=== PATIENT | male | born 1960 | race Caucasian/White ===

== ENCOUNTER 2017-02-10 21:16 | Inpatient (IN) | payer OTHER ==
[~2017-02-10] VITALS: Ht 170.2 cm; Wt 57.3 kg
[2017-02-10 22:02] LABS: HEMOGLOBIN 11.4 G/DL (14.0-18.0); MONOCYTES # (AUTO) 0.7 K/UL (0.1-1.30)
--- NOTE | 2017-02-10 22:08 | NUR ---
Patient in bed, no acute distress noted. Will continue to monitor patient.
[2017-02-10 22:09] LABS: BASOPHILS % (AUTO) 0.2 % (0.0-2.0); EOSINOPHILS % (AUTO) 0.5 % (0.0-7.0); HEMATOCRIT 35.1 % (40-50); LYMPHOCYTES % (AUTO) 12.3 % (20.5-51.5); MEAN CORPUSCULAR HEMOGLOBIN 28.1 UUG (27.0-31.0); MEAN CORPUSCULAR HGB CONC 33 g/dL (32.0-37.0); MEAN CORPUSCULAR VOLUME 86.3 FL (82.0-92.0); MONOCYTES % (AUTO) 8.3 % (0.0-11.0); NEUTROPHILS # (AUTO) 6.2 K/UL (1.8-8.9); NEUTROPHILS % (AUTO) 78.7 % (38.5-71.5); PLATELET COUNT (AUTO) 152 K/UL (150-450); RED BLOOD CELL COUNT(AUTO) 4.06 MIL/UL (4.7-6.1); WHITE BLOOD COUNT (AUTO) 7.9 K/UL (4.0-11.2)
[2017-02-10 22:13] LABS: ALANINE AMINOTRANSFERASE 39 U/L (16-63); ALKALINE PHOSPHATASE 197 U/L (50-136); ASPARTATE AMINOTRANSFERASE 29 U/L (15-37); BILIRUBIN,TOTAL 0.4 mg/dL (0.2-1.0); CARBON DIOXIDE 34 mmol/L (21-32); CHLORIDE 101 mmol/L (98-107); CREATININE 0.9 mg/dL (0.6-1.3); GLUCOSE 120 mg/dL (74-106); POTASSIUM 4.2 mmol/L (3.5-5.1); TOTAL PROTEIN, SERUM 6.7 g/dL (6.4-8.2); UREA NITROGEN, BLOOD 14 mg/dL (7-18)
[2017-02-10] MEDS ORDERED: ONDA8TAB12 PO (22:14)
[2017-02-10] MEDS ORDERED: LISI-603 PO (22:14)
[2017-02-10] MEDS ORDERED: TAMS0.4C34 PO (22:14)
[2017-02-10] MEDS ORDERED: HYDR2TAB8 PO (22:14)
[2017-02-10] MEDS ORDERED: MORP30TA7 PO (22:14)
[2017-02-10] MEDS ORDERED: MORP15TA PO (22:14)
[2017-02-10] MEDS ORDERED: ONDANSETRON IV *ER 4 MG/2 ML VIAL IV ONE (23:00)
[2017-02-10] MEDS ORDERED: MORPHINE SULFATE 4 MG/1 ML DISP.SYRIN IV ONE (23:00)
[2017-02-10] MEDS ORDERED: ONDANSETRON 4 MG/2 ML VIAL ONE (23:05)
[2017-02-10] MEDS ORDERED: MORPHINE SULFATE 4 MG/1 ML DISP.SYRIN ONE (23:05)
[2017-02-10] MEDS ORDERED: IV NORMAL SALINE 250 ML IV ONE (23:51)
[2017-02-10] MEDS ORDERED: IOHEXOL 300MG/ML 100 ML INFUS..BTL ONE (23:51)
[2017-02-10] MEDS ORDERED: NORMAL SALINE FLUSH 10 ML DISP.SYRIN ONE (23:51)
--- NOTE | 2017-02-11 00:50 | NUR ---
Spoke with [facility] Radiology, awaiting CT scan result.
[2017-02-11] MEDS ORDERED: CIPROFLOXACIN IV 400 MG in PREMIXED 1 EACH IV ONE (01:42)
--- NOTE | 2017-02-11 01:44 | NUR ---
Panel Call placed, call back pending.
[2017-02-11] MEDS ORDERED: METRONIDAZOLE 500 MG/NS 100 ML PIGGYBACK IV ONE (01:45)
[2017-02-11] MEDS ORDERED: METRONIDAZOLE 500 MG/NS 100ML 100 ML IV ONE (02:15)
--- NOTE | 2017-02-11 02:28 | NUR ---
Pt. admitted to Telemetry , under care of Dr. Alberto Ann. Dx: Abd pain. Belongs List completed
[2017-02-11 02:30] VITALS: BP 109/49
--- NOTE | 2017-02-11 02:35 | NUR ---
admitted new patient to room 219, patient alert,oriented,not in distress, abdominal soft ,non distended, bowel present,patient stated no bowel movement for 10 days, md was aware,patient still c/o abdominal pain.
[2017-02-11] MEDS ORDERED: LEVOFLOXACIN 500 MG/D5W 100 ML ONE (02:53)
[2017-02-11] MEDS ORDERED: MORPHINE SULFATE 4 MG/1 ML DISP.SYRIN ONE (02:58)
[2017-02-11] MEDS ORDERED: ONDANSETRON 4 MG/2 ML VIAL IV PRN ×2 (03:00)
[2017-02-11] MEDS ORDERED: ZOLPIDEM 5 MG TABLET PO PRN (03:00)
[2017-02-11] MEDS ORDERED: LEVOFLOXACIN 500 MG/D5W 500 MG in PREMIXED 1 EACH IV SCH (03:00)
[2017-02-11] MEDS ORDERED: HYDROCODONE/APAP 5-325MG TABLET PO PRN (03:00)
[2017-02-11] MEDS ORDERED: MAGNESIUM HYDROXIDE 30 ML LIQUID UDC PO PRN (03:00)
[2017-02-11] MEDS ORDERED: Z GUARD REMEDY PASTE 57 GM TUBE TOP PRN (03:00)
[2017-02-11] MEDS ORDERED: MORPHINE SULFATE 4 MG/1 ML DISP.SYRIN IV PRN (03:00)
[2017-02-11] MEDS ORDERED: ACETAMINOPHEN 325 MG TABLET PO PRN (03:00)
[2017-02-11] MEDS ORDERED: HYDROMORPHONE 1 MG/1 ML DISP.SYRIN IV PRN (03:15)
--- NOTE | 2017-02-11 03:15 | NUR ---
morphine 4mg iv given for abdominal pain 12/22 once.
[2017-02-11] MEDS: IV NS 1000 ML 1,000 ML IV PRN (03:30)
[2017-02-11] MEDS ORDERED: MORPHINE SULFATE 4 MG/1 ML DISP.SYRIN IV ONE (03:45)
[2017-02-11] MEDS: LACTULOSE 20 G/30 ML LIQUID UDC PO SCH ×4 (03:58→18:00)
[2017-02-11 04:00] VITALS: BP 101/59
[2017-02-11] MEDS ORDERED: LACTULOSE 20 G/30 ML LIQUID UDC ONE (04:08)
[2017-02-11] MEDS ORDERED: HYDROMORPHONE 2 MG/1 ML DISP.SYRIN ONE (05:16)
[2017-02-11] MEDS: LISINOPRIL 20 MG TABLET PO SCH (08:20)
[2017-02-11] MEDS: HYDROMORPHONE 2 MG/1 ML DISP.SYRIN IV PRN ×4 (09:53→20:28)
[2017-02-11 10:57] LABS: IRON, SERUM 24 ug/dL (50-175)
[2017-02-11 12:05] VITALS: BP 109/60
[2017-02-11 15:26] LABS: THYROID STIMULATING HORMONE 0.54 mIU/mL (0.358-3.740)
--- NOTE | 2017-02-11 15:34 | NUR ---
Advised pt that we need medical records from oncologist, per patient "son will bring it."
[2017-02-11 15:45] VITALS: BP 106/58
[2017-02-11 16:45] LABS: URIC ACID 2.7 mg/dL (3.5-7.2)
--- NOTE | 2017-02-11 19:05 | NUR ---
pt's son provided with Dr. Patrick cell phone number# . Son states that "call him to get the medical record". Will advise [employer] shift supervisor. Pt is laying in bed. No respiratory distress noted. Iv intact/patent. All safety needs are met.
[2017-02-11 20:57] VITALS: BP 110/51
[2017-02-12] MEDS: IV NS 1000 ML 1,000 ML IV PRN ×3 (02:32→23:56)
[2017-02-12] MEDS: HYDROMORPHONE 2 MG/1 ML DISP.SYRIN IV PRN ×8 (03:00→23:57)
[2017-02-12 04:57] VITALS: BP 98/52
[2017-02-12] MEDS: LACTULOSE 20 G/30 ML LIQUID UDC PO SCH ×5 (06:00→23:56)
--- NOTE | 2017-02-12 06:00 | NUR ---
PT SLEPT INTERMITTENTLY, IN NO ACUTE DISTRESS. PAIN MANAGEMENT ORDERED. NO DIARRHEA NOTED. IVF RUNNING, PATENT, NO INFILTRATION NOTED. CALL LIGHT WITHIN REACH, BED ALARM ON. WILL CONTINUE TO MONITOR.
[2017-02-12 06:51] LABS: BASOPHILS % (AUTO) 0.1 % (0.0-2.0); EOSINOPHILS % (AUTO) 0.8 % (0.0-7.0); HEMOGLOBIN 9.8 G/DL (14.0-18.0); LYMPHOCYTES # (AUTO) 0.9 K/UL (0.8-4.8); LYMPHOCYTES % (AUTO) 15.8 % (20.5-51.5); MEAN CORPUSCULAR HGB CONC 34 g/dL (32.0-37.0); MONOCYTES # (AUTO) 0.7 K/UL (0.1-1.30); MONOCYTES % (AUTO) 11.8 % (0.0-11.0); NEUTROPHILS # (AUTO) 4.2 K/UL (1.8-8.9); NEUTROPHILS % (AUTO) 71.5 % (38.5-71.5); PLATELET COUNT (AUTO) 146 K/UL (150-450)
[2017-02-12 06:52] LABS: CREATININE 0.7 mg/dL (0.6-1.3); MAGNESIUM 1.5 mg/dL (1.8-2.4)
[2017-02-12 06:55] LABS: RED BLOOD CELL COUNT(AUTO) 3.37 MIL/UL (4.7-6.1); WHITE BLOOD COUNT (AUTO) 6.1 K/UL (4.0-11.2)
[2017-02-12 07:46] LABS: *BILIRUBIN,URIN NEGATIVE (NEGATIVE); *BLOOD, URINE NEGATIVE (NEGATIVE); *CLARITY,URINE CLEAR (CLEAR); *COLOR,URINE DARK YELLOW (YELLOW); *KETONES,URINE NEGATIVE (NEGATIVE); *PROTEIN,URINE TRACE (NEGATIVE); *UROBILINOGEN,URINE 0.2 E.U./dl (NORMAL); LEUKOCYTE ESTERASE ,URINE NEGATIVE (NEGATIVE); NITRITE, URINE NEGATIVE (NEGATIVE); UGLUCOSE NEGATIVE (NEGATIVE)
[2017-02-12 07:55] LABS: BACTERIA,URINE NONE SEEN /HPF (NONE SEEN); MUCUS,URINE FEW /LPF (0-FEW); RBC,URINE NONE SEEN /HPF (0-3); SQUAMOUS EPITHELIAL CELL,UR FEW /HPF (NONE SEEN); WBC,URINE 0-3 /HPF (0-3)
[2017-02-12] MEDS: PSYLLIUM SEED PACKET PO SCH (09:04)
[2017-02-12] MEDS: LISINOPRIL 20 MG TABLET PO SCH (09:04)
[2017-02-12] MEDS: MAGNESIUM SULFATE/D5W 100 ML IV SCH ×2 (09:46→11:05)
[2017-02-12 11:14] VITALS: BP 104/51
--- NOTE | 2017-02-12 12:06 | NUR ---
SPOKE WITH DR COLLINS, WOULD LIKE FOR DR MEZA TO CALL HIM TO UPDATE HIM ON THE PATIENT AND WILL FAX MEDICAL RECORDS TOMORROW WHEN IN THE OFFICE. WILL PASS ALONG NUMBER TO DR MEZA IF COMES DURING SHIFT, IF NOT WILL ENDORSE TO [facility].
--- NOTE | 2017-02-12 12:15 | NUR ---
DR MEZA WAS HERE, SAW PAT, PASSED ALONG MESSAGE FROM DR BETANCUR AND GAVE HER HIS PHONE NUMBER.
[2017-02-12 15:06] VITALS: BP 108/56
[2017-02-12] MEDS ORDERED: GOLYTELY 4000 ML BOTTLE PO ONE (16:00)
[2017-02-12] MEDS ORDERED: BISACODYL 5 MG TABLET.DR PO ONE (16:00)
--- NOTE | 2017-02-12 17:42 | NUR ---
PT DRINKING GOLYTLEY AT THIS TIME, DOES NOT WANT THE LACTULOSE.
[2017-02-12 20:00] VITALS: BP 108/59
--- NOTE | 2017-02-12 20:00 | NUR ---
Pt awake, alert, oriented x 4. No acute distress noted. Verbalized pain 7-9/10. Golytely at bedside and encouraged pt to increase fluid intake. Pt states he can only drink so much. Reminded pt NPO status after 0600. Pt remains on clear liquid at this time. Continue to monitor. Call light placed within reach.
[2017-02-13] MEDS: HYDROMORPHONE 2 MG/1 ML DISP.SYRIN IV PRN ×5 (03:12→16:06)
[2017-02-13 04:00] VITALS: BP 115/65
--- NOTE | 2017-02-13 04:04 | NUR ---
Pt awake in bed and refuses to continue drinking Golytely. Verbalized "I can't sleep if i keep drinking". States he rather drink it during the day than at night. Encouraged pt to complete the Golytely as ordered including explanation of preparation process. Pt continues to state he is unable to finish large amounts and only prefers small sips at this time. Pt made aware of NPO status once completing Golytely order.
[2017-02-13] MEDS: LACTULOSE 20 G/30 ML LIQUID UDC PO SCH ×3 (06:08→16:42)
[2017-02-13 06:38] LABS: BASOPHILS % (AUTO) 0.1 % (0.0-2.0); EOSINOPHILS # (AUTO) 0.1 K/uL (0.0-0.7); HEMATOCRIT 27.9 % (40-50); HEMOGLOBIN 9.3 G/DL (14.0-18.0); LYMPHOCYTES # (AUTO) 0.9 K/UL (0.8-4.8); MEAN CORPUSCULAR HGB CONC 33 g/dL (32.0-37.0); MEAN CORPUSCULAR VOLUME 87.4 FL (82.0-92.0); MONOCYTES # (AUTO) 0.6 K/UL (0.1-1.30); MONOCYTES % (AUTO) 10.7 % (0.0-11.0); NEUTROPHILS % (AUTO) 72.2 % (38.5-71.5); PLATELET COUNT (AUTO) 141 K/UL (150-450); RED BLOOD CELL COUNT(AUTO) 3.19 MIL/UL (4.7-6.1); WHITE BLOOD COUNT (AUTO) 5.6 K/UL (4.0-11.2)
[2017-02-13 07:22] LABS: CARBON DIOXIDE 29 mmol/L (21-32); CHLORIDE 104 mmol/L (98-107); CREATININE 0.6 mg/dL (0.6-1.3); GLUCOSE 88 mg/dL (74-106); MAGNESIUM 1.8 mg/dL (1.8-2.4); POTASSIUM 3.8 mmol/L (3.5-5.1); UREA NITROGEN, BLOOD 9 mg/dL (7-18)
--- NOTE | 2017-02-13 07:53 | NUR ---
Spoke with Dr. Vargas regarding pt's status of incomplete Golytely. stated to stop NPO and to continue clear liquids. Continue Golytely at this time. Next day schedule EGD for 0900 or 1000. Noted and carried out.
--- NOTE | 2017-02-13 08:00 | NUR ---
AWAKE NO PAIN OR N/V CONTINUE GOLYTELY DRINK ORDER VERY SLOW AND TAKE SMALL DRINK AT THE TIME ,ENC TO DRINK MORE IF POSS ON FALL PRECAUTION BECAUSE OF WEAKNESS CALL DUDLEY IN REACH
[2017-02-13] MEDS ORDERED: GOLYTELY 4000 ML BOTTLE PO ONE (08:30)
[2017-02-13] MEDS: PSYLLIUM SEED PACKET PO SCH (08:48)
[2017-02-13] MEDS: LISINOPRIL 20 MG TABLET PO SCH (08:48)
--- NOTE | 2017-02-13 10:00 | NUR ---
DR DALAL SEE PATIENT AND LAB RESULT ,PT CONDITION INFORM STATE SCHEDULE FOR EGD TOMORROW ON CLEAR LIQ TODAY AND CONTINUE GOLYTELY ORDER
[2017-02-13 11:18] VITALS: BP 101/58
--- NOTE | 2017-02-13 12:00 | NUR ---
PATIENT DAUGHTER CAME AND DISCUSS WITH ORDER CHECKER THIS AFTERNOON
[2017-02-13 13:21] LABS: *OCCULT BLOOD STOOL POSITIVE (NEGATIVE)
[2017-02-13] MEDS: IV NS 1000 ML 1,000 ML IV PRN (14:05)
--- NOTE | 2017-02-13 15:00 | NUR ---
DR JIMÉNEZ ORDER OK TO D/C HOME TODAY AND NEED TO F/U WITH HIS OWN PMD D/C INSTRUCTION GIVEN AND CONTINUE HOME MEDICINE ORDER
[2017-02-13 15:11] VITALS: BP 118/64
[2017-02-13] MEDS ORDERED: Psyllium Seed PO (15:55)
--- NOTE | 2017-02-13 16:14 | NUR ---
Had been in contact with Lee from [facility] [ ] about the patient's condition. Both Dr. Ann and Dr. Moreno had a peer to peer about his condition. The patient will be discharged today back to his daughter's home [[id number] [place] [address]] [address]. Ann. Spoke to both the patient and his daughter, Lc [ ], and they were in agreement. She will be picking him up later today and will make sure he follows-up with his PCP and oncologist. His RN, Dany, is aware of his discharge plan.
--- NOTE | 2017-02-13 17:45 | NUR ---
D/C HOME WITH HIS BELONGING CONDITION STABLE NO N/V OR PAIN HL WAS DISCONTINUE PRIOR DISCHARGE HOME TODAY REFUSED PHAMACY TO DISCUSS ON HOME MEDICINE
== END 2017-02-13 18:00 | disposition home or self-care (01) | DRG 374 ==
LOC: ER 21:17 → TELE 02-11 02:05 → MED 02-11 03:22
PROVIDERS: ATTEND Internal Medicine
DX: C16.9 Malignant neoplasm of stomach, unspecified (principal); E43 Unspecified severe protein-calorie malnutrition; R18.8 Other ascites; D68.59 Other primary thrombophilia; C22.9 Malignant neoplasm of liver, not specified as primary or secondary; K75.9 Inflammatory liver disease, unspecified; E86.0 Dehydration; Z68.1 Body mass index [BMI] 19.9 or less, adult; I10 Essential (primary) hypertension; K56.41 Fecal impaction; D63.8 Anemia in other chronic diseases classified elsewhere; I70.0 Atherosclerosis of aorta; Z92.21 Personal history of antineoplastic chemotherapy; Z79.899 Other long term (current) drug therapy; F17.210 Nicotine dependence, cigarettes, uncomplicated
CPT/HCPCS: 36415; 70030-TC; 71010; 74020; 82378; 82747; 83550; 83615; 83735; 84100; 84443; 84550; 85014; 85025; 85610; 87086; 93005; A4663; J0744; J1170; J1956; J2270; J2405; J3475; J3490; J7030; J7050; Q9967